=== PATIENT | male | born 2000 ===

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

== ENCOUNTER 2022-05-27 09:43 | Emergency (ER) | payer MEDICAID ==
[~2022-05-27] VITALS: Ht 170.2 cm; Wt 56.8 kg
[2022-05-27 09:53] VITALS: TEMP 98.4
[2022-05-27] MEDS ORDERED: FLEXERIL 1010 MG/TAB PO (12:49)
[2022-05-27 13:10] VITALS: BP 124/81; PULSE 55
== END 2022-05-27 13:10 | disposition home or self-care (01) ==
LOC: COL.ER 09:43
DX: M54.50 Low back pain, unspecified (principal); Z21 Asymptomatic human immunodeficiency virus [HIV] infection status; X50.0XXA Overexertion from strenuous movement or load, initial encounter
CPT/HCPCS: J1885; J2360

== ENCOUNTER 2022-06-05 14:43 | Emergency (ER) | payer MEDICAID ==
[~2022-06-05] VITALS: Ht 170.2 cm; Wt 56.8 kg
[~2022-06-05 14:43] MED LIST: FLEXERIL 1010 MG/TAB PO
[2022-06-05 14:53] VITALS: TEMP 98.4
[2022-06-05 15:40] VITALS: BP 132/76; PULSE 70
== END 2022-06-05 15:40 | disposition home or self-care (01) ==
LOC: COL.ER 14:43
DX: M54.50 Low back pain, unspecified (principal); F17.210 Nicotine dependence, cigarettes, uncomplicated